=== PATIENT | female | born 1945 | race Caucasian/White ===

== ENCOUNTER 2020-01-23 16:23 | Inpatient (IN) | payer OTHER ==
[~2020-01-23] VITALS: Ht 165.1 cm; Wt 57.2 kg
[~2020-01-23 16:23] MED LIST: ACCUNEB SO1.25 MG/1 INH; ATIVAN0.5 MG PO; CEFDINIR300 MG PO; COZAAR 50 MG TA50 M1 PO; INDAPAMIDE2.5 MG PO; ZANAFLEX4 MG PO
[2020-01-23 16:36] VITALS: BP 144/71
[2020-01-23 17:08] LABS: BASOPHILS 0.3 % (0.0-2.0); EOSINOPHILS 0.2 % (0.0-3.0); HEMATOCRIT 41.7 % (37.0-47.0); HEMOGLOBIN 13.8 gm/dL (12.0-15.0); LYMPHOCYTES 1.6 % (24.0-44.0); MCH 29.2 pg (26.0-34.0); MCHC 33.2 g/dL (28.0-37.0); MCV 88.1 fL (80.0-100.0); MONOCYTES 3.2 % (1.0-8.0); PLATELET COUNT 332 thou/uL (150-400); POLYS 94.7 % (36.0-66.0); RBC 4.73 mil/uL (4.20-5.00); RDW 14.1 % (10.5-14.5)
[2020-01-23 17:16] LABS: BE(vivo) 0 mmol/L (-2 to +3); HCO3 22.2 mmol/L (22.0-26.0); PCO2 29.7 mmHg (35.0-45.0); pH 7.492 (7.360-7.450); sO2 91.6 % (92.0-98.0)
[2020-01-23 17:17] LABS: PO2 55.6 mmHg (80.0-100.0)
[2020-01-23 17:19] LABS: ANION GAP 11 mmol/L (7-16); BUN 9 mg/dL (7-18); CALCIUM 8.3 mg/dL (8.5-10.1); CHLORIDE 93 mmol/L (98-107); CO2 23 mmol/L (21-32); CREATININE 0.7 mg/dL (0.6-1.0); GLUCOSE 120 mg/dL (74-106); POTASSIUM 3.6 mmol/L (3.5-5.1); SODIUM 127 mmol/L (136-145)
[2020-01-23 17:31] LABS: ALBUMIN 2.6 g/dL (3.4-5.0); SGOT 17 U/L (15-37); SGPT 20 U/L (30-65); TOTAL BILIRUBIN 0.7 mg/dL (0.2-1.0); TOTAL PROTEIN 7.3 g/dL (6.4-8.2); TROPONIN-I <0.06 ng/mL (<0.06)
[2020-01-23] MEDS ORDERED: HALOBETASOL PRO15 GM TOP (19:38)
[2020-01-23] MEDS ORDERED: LATANOPROST 0.2.5 ML OPHTHALMIC (19:39)
[2020-01-23] MEDS ORDERED: PROAIR HFA8.5 GM INH (19:39)
[2020-01-23] MEDS ORDERED: APAP W/CODEINE1 TA2 PO (19:39)
[2020-01-23] MEDS ORDERED: SINGULAIR 10 MG10 M1 PO (19:40)
[2020-01-23] MEDS ORDERED: DILT-XR180 MG PO (19:40)
[2020-01-23 20:43] VITALS: BP 134/52
[2020-01-23 20:55] VITALS: BP 125/59
[2020-01-23 22:32] VITALS: BP 152/80
[2020-01-24 03:57] VITALS: BP 135/55
--- NOTE | 2020-01-24 07:24 | NUR ---
PT ARRIVED ON UNIT FROM ER AT 0400. COMES FROM HOME--ADMITTED WITH SOA--COUGH--SWABBED FOR R/O. AMBULATES TO BATHROOM WITHASSIST X1. TYLENOL PROVIDING PAIN RELIEF. RESTING COMFORTABLY. NO NEEDS VOICED. CALL LIGHT WITHIN REACH. FREQUENT OBSERVATION.
[2020-01-24 08:03] VITALS: BP 100/53
--- NOTE | 2020-01-24 08:46 | EKG ---
[facility] [address] [place] [address] ELECTROCARDIOGRAM REPORT Name: OLU SIDDIQUI Room #: 355- ADM IN M.R.#: [id number] Admission: 01/23/20 Attend Phys: Arun Mays MD Discharge: Date of : 49 Report #: [id number] THIS REPORT FOR: cc: Jonel Dawson MD, Thomas P. MD Lundgren,Rito Eden MD [facility] ~ THIS REPORT FOR: //name// [facility] ED Test Date: 2020-01-23 Test Time: 16:45:53 Pat Name: OLU SIDDIQUI Department: Room: [facility] Gender: F Director [employer]itation Bureau: Elisabeth : 1945 Requested By: Shilpa Mayo Order Number: [id number] MD: Rito Mireles Measurements Intervals [place] Rate: 122 P: 78 SC: 137 QRS: 42 QRSD: 92 T: 77 QT: 305 QTc: 435 Interpretive Statements Sinus tachycardia Occasional supraventricular complexes Compared to ECG 12/12/2016 01:24:18 Atrial premature complex(es) now present Sinus tachycardia is now present Electronically Signed On 01-24-2020 8:46:20 CDT by Rito Mireles [email or web address] <ELECTRONICALLY SIGNED> By: Rito Mireles MD, [facility] 01/24/20 0846 [id number] Rito Mireles MD, [facility] /EPI
--- NOTE | 2020-01-24 11:14 | NUR ---
PT WAS SEEN TODAY FOR THE FIRST TIME, PT'S BLOOD PRESSURE WAS LOW THIS AM VIA MACHINE, SO RN RETOOK THE PT'S HR AND BP MANUALLY; WHICH WAS 115/75 AND 92HR. NO CONCERNS FROM THE PT, SHE WAS CURIOUS ABOUT WHEN THE COVID TEST WILL POPULATE, SPOKE WITH CALEBO THIS AM, PER STAFF, CURRENT PCR TEST IS DOWN AND IS BEING PROCESSED AT [facility]; WHICH TAKES ABOUT 24HRS. COMMUNICATED THIS INFORMATION TO THE PT. PT;S DAUGHTERS CALLED THIS AM HOPING TO RETREIVE INFORMATION, PER PT IT IS OKAY TO RELEASE INFORMATION, PT'S FAMILY STATED UNDERSTANDING OF CURRENT CARE REGIMEN AND VERBALLY STATED GRATITUDE FOR CURRENT CARE AND FUTURE CARE PLANS. WILL CONTINUE TO MONITOR FOR PROPER OXYGENATION AND UPDATE NEEDED
[2020-01-24 12:16] VITALS: BP 135/75
[2020-01-24 15:47] VITALS: BP 103/62
[2020-01-24 22:05] VITALS: BP 118/64
--- NOTE | 2020-01-25 00:10 | NUR ---
PT AOX4. PT REPORTS PAIN IN RIGHT RIBS, WORSENED BY COUGHING. PT RECEIVING PRN PO APAP Q6HR AND HAS PRN PO NORCO Q6HR AVAILABLE. PT AMBULATING TO BATHROOM WITH X1 ASSIST, NOTED TO HAVE UNSTEADY GAIT AT TIMES, WALKER TO BE PROVIDED.PT TOLERATING PO INTAKE OF FLUIDS WITHOUT ISSUE. PT CONTINUES WITH 3L O2 VIA NC, NOTED TO HAVE SOB WITH EXERTION OR ON ROOM AIR. PT REPORTS ANXIETY, PT RECEIVING PRN PO ATIVAN Q8HR. FREQUENT REPOSITIONING ENCOURAGED. PT NOTED TO SHIFT INDEPENDENTLY WHILE IN BED. PT ENCOURAGED TO NOTIFY STAFF FOR ALL NEEDS. CALL LIGHT WITHIN REACH, BED ALARM ON, BED IN LOWEST POSITION, WILL CONTINUE TO MONITOR.
[2020-01-25 03:18] VITALS: BP 117/59
[2020-01-25 08:18] VITALS: BP 112/57
[2020-01-25 11:54] VITALS: BP 134/61
--- NOTE | 2020-01-25 15:45 | NUR ---
INITIAL ASSESSMENT: SW reviewed chart and spoke with nursing and attending physician. Pt was admitted from home due to pneumonia/acute respiratory failure. Pt placed in Enhanced Isolation to r/o COVID-19. Pt's first test was negative. Awaiting repeat test results. SW received call from pt's dtr, Xiao Rojas ([phone]). Per Xiao she has provided her contact info to the nursing staff, but it is not listed on pt's chart. Xiao would like an update. SW explained that consent from the pt will need to be obtained, to add Xiao to her authorized contact list. Xaio verbalized understanding. SW spoke with pt via phone. Introduced role of SW. Pt is alert/orientated. Pt reports she lives at home with her . Prior to admission, she was independent with ADLs. Pt does have a cane to assist as needed with ambulation. Pt states there are stairs in her house that she is able to navigate. Pt's PCP is Dr. Jonel Dawson. Pt has used home health in the past, but unsure of agency. No hx of post-acute placement. Pt's goal is to return home when medically stable. Pt authorized Xiao to be on her contact list. Info placed in Voalte. SW updated nursing, who placed call to Xiao to provide update. SW is following to assist as needed with discharge planning.
[2020-01-25 16:06] VITALS: BP 133/64
[2020-01-25 16:18] LABS: CALCIUM 8.6 mg/dL (8.5-10.1); CREATININE 0.7 mg/dL (0.6-1.0); POTASSIUM 3.8 mmol/L (3.5-5.1)
--- NOTE | 2020-01-25 17:39 | NUR ---
PT UP TO BATHROOM SEVERAL TIME. PT TOLERATING PO WELL AND REMAINS ON 3LNC. SECOND COVID TEST IS NEGATIVE. WILL CONTINUE TO ASSESS.
[2020-01-25 19:07] VITALS: BP 119/63
--- NOTE | 2020-01-25 20:09 | NUR ---
ENHANCED PRECAUTIONS MAY BE DISCONTINUED PER DR BRIONNA RENO
[2020-01-26 03:02] VITALS: BP 151/64
--- NOTE | 2020-01-26 05:50 | NUR ---
ASSUMED CARE FROM DAY SHIFT PT ALERT AND ORIENTED X 4 UP TO BSC FREQ . PO MEDICATION TAKEN WITH SNACK , PT THEN WENT TO SLEEP AND WOKE UP CONFUSED PACKING UP BELONGING TO LEAVE HOSPITAL, PT REORIENTED TO PLACE AND SITUATION.PT CALLED DAUGHTER, THEN PT APPEARS TO BECOME CALM AND COOPERATIVE . PT THEN CLIMB IN BED AND FELL ASLEEP. PT TO TRANFER TO CCU.
[2020-01-26 06:56] VITALS: BP 152/79
--- NOTE | 2020-01-26 11:04 | 2DMMODE ---
[facility] [place] [address] 2 D/M-MODE ECHOCARDIOGRAM Name: OLU SIDDIQUI Room #: 204-P ADM IN M.R.#: [id number] Admission: 01/23/20 Attend Phys: Arun Mays MD Discharge: Date of : 49 Report #: [id number] THIS REPORT FOR: cc: Jonel Dawson MD, Thomas P. MD Lammoglia, Francisco J. MD ~ APPROVED REPORT Study performed: 01/26/2020 10:23:25 EXAM: Comprehensive 2D, Doppler, and color-flow Echocardiogram Patient Location: Bedside Room #: 204 Status: routine BSA: 1.62 HR: 90 bpm BP: 152/79 mmHg Rhythm: NSR Other Information Study Quality: Adequate Indications Short of breath, cough, CHF. Hx: HTN 2D Dimensions RVDd: 34.14 mm IVSd: 9.89 (7-11mm) LVOT Diam: 19.77 (18-24mm) LVDd: 42.38 mm PWd: 9.15 (7-11mm) LVDs: 32.72 (25-40mm) Aortic Root: 33.28 mm Volumes Left Atrial Volume (Systole) Single Plane 4CH: 23.09 mL Single Plane 2CH: 39.31 mL LA ESV Index: 22.00 mL/m2 Aortic Valve AoV Peak Micheal.: 1.49 m/s AO Peak Gr.: 8.84 mmHg LVOT Max P.94 mmHg LVOT Max V: 1.22 m/s STEW Vmax: 2.51 cm2 [facility] [address] [place] [address] 2 D/M-MODE ECHOCARDIOGRAM Name: OLU SIDDIQUI Room #: 204-P [facility] IN .R.#: [id number] Admission: 01/23/20 Attend Phys: Vu Ferrer Discharge: Date of : 49 Report #: [id number] Mitral Valve E/A Ratio: 1.2 MV Decel. Time: 174.86 ms MV E Max Micheal.: 1.33 m/s MV A Micheal.: 1.11 m/s MV PHT: 50.71 ms IVRT: 48.44 ms Pulmonary Valve PV Peak Micheal.: 1.08 m/s PV Peak Gr.: 4.64 mmHg Pulmonary Vein P Vein S: 0.50 m/s P Vein A: 0.41 m/s P Vein D: 0.66 m/s P Vein A Dur.: 79.6 msec P Vein S/D Ratio: 0.76 Tricuspid Valve TR Peak Micheal.: 3.03 m/s RAP Estimate: 10.00 mmHg TR Peak Gr.: 37.00 mmHg PA Pressure: 47.00 mmHg Left Ventricle The left ventricle is normal size. There is normal LV segmental wall motion. There is normal left ventricular wall thickness. Left ventricular systolic function is normal. LVEF is 55-60%. Moderate diastolic dysfunction is present (pseudonormal filling). Right Ventricle The right ventricle is normal size. The right ventricular systolic function is normal. Atria The left atrium size is normal. The right atrium size is normal. Aortic Valve The aortic valve is normal in structure. No aortic regurgitation is present. There is no aortic valvular stenosis. Mitral Valve The mitral valve is normal in structure. Moderate mitral regurgitation. Tricuspid Valve The tricuspid valve is normal in structure. Trace tricuspid [facility] [address] [address] 2 D/M-MODE ECHOCARDIOGRAM Name: CHENOLU Room #: 204-P [facility] IN .R.#: [id number] Admission: 01/23/20 Attend Phys: Vu Ferrer Discharge: Date of : 49 Report #: [id number] regurgitation. Estimated PAP is 45-50mmHg. Pulmonic Valve Pulmonic valve is not well visualized. Great Vessels The aortic root is normal in size. Ascending aorta is not well visualized. IVC is dilated and collapses partially with inspiration. Pericardium There is no pericardial effusion. <Conclusion> The left ventricle is normal size. LVEF is 55-60%. The aortic valve is normal in structure. The mitral valve is normal in structure. Moderate mitral regurgitation. The tricuspid valve is normal in structure. Trace tricuspid regurgitation. Estimated PAP is 45-50mmHg. Pulmonic valve is not well visualized. There is no pericardial effusion. <ELECTRONICALLY SIGNED> By: Chema Tao MD 01/26/20 1103 1103 1103 Chema Tao MD /INF
[2020-01-26 11:50] VITALS: BP 131/59
[2020-01-26 15:23] VITALS: BP 116/58
--- NOTE | 2020-01-26 18:39 | NUR ---
ASSESSMENT CHARTED. MEDS PER AUG. UP TO THE BATHROM WITH STBY ASSIST. PT WITH O2 INSIUT AT TIME OF AMBULATION. ANSHUL DIET AND FLUIDS WITH NO CO'S OF NAUSEA. PT WITH CO'S OF RIB PAIN FROM COUGHING GIVEN HYDROCODONE WITH GOOD RELIEF. PATIENT GIVEN LASIX WITH GOOD OUTPUT. ECHO COMPLETED THIS AM. DAUGHTER AT THE BEDSIDE FOR THE DAY. MEDS PER AUG. NO CO'S AT THE PRESENT TIME.
[2020-01-26 19:40] VITALS: BP 137/78
[2020-01-27 03:50] VITALS: BP 132/72
--- NOTE | 2020-01-27 05:02 | NUR ---
ASSESSMENTS CHARTED, MEDS CHARTED GIVEN. PATIENT RESTING IN ROOM DURIMG SHIFT. PATIENT RECEIVED TWO IV ANTIBIOTICS THEN THE IV BEGAN TO HURT THE PATIENT. A NEW IV WAS STARTED IN THE LEFT FOREARM. A SMALL SKIN TEAR HAPPENED THE OLD TEGADERM WAS REMOVED. PATIENT IS ALSO ON LASIX THERAPY. C/O PAIN IN LEFT RIB AREA FROM COUGHING. HYDROCODONE GIVEN FOR PAIN. PATIENT USING BSC. FALL PRECAUTIONS IN PLACE DURING SHIFT.
[2020-01-27 06:14] LABS: HEMATOCRIT 36.4 % (37.0-47.0); HEMOGLOBIN 12.1 gm/dL (12.0-15.0); MCH 29.2 pg (26.0-34.0); MCHC 33.2 g/dL (28.0-37.0); MCV 87.9 fL (80.0-100.0); PLATELET COUNT 463 thou/uL (150-400); RBC 4.14 mil/uL (4.20-5.00); WBC 8.5 thou/uL (4.0-11.0)
[2020-01-27 08:14] VITALS: BP 135/65
[2020-01-27 08:52] LABS: METAMYELOCYTES 1 %; MYELOCYTES 1 %
[2020-01-27 08:53] LABS: ABSOLUTE NEUTROPHILS 7.9 thou/uL (1.4-8.2); ANISOCYTOSIS 1+
[2020-01-27 11:44] VITALS: BP 126/69
[2020-01-27 15:13] VITALS: BP 144/73
--- NOTE | 2020-01-27 16:10 | NUR ---
ASSESSMENT CHARTED. PT ALERT AND ORIENTED. VSS. REPORT HAVING RIB PAIN WITH DEEP BREATHING. RT TREATMENT PROVIDED ORDERED. FAMILY UPDATED ON PT'S PROGRESS. WILL CONTINUE TO MONITOR.
[2020-01-27 20:01] VITALS: BP 149/61
[2020-01-28 03:45] VITALS: BP 121/74
[2020-01-28 07:40] VITALS: BP 140/69
--- NOTE | 2020-01-28 08:08 | NUR ---
[facility] 1900. PT/VITALS STABLE. INTERMITTENT NON CARDIAC CHEST PAIN DUE TO EXCESSIVE COUGHING. NO DISTRESS NOTED. SR ON MONITOR . PROGRESSING WELL WITH POC. O2 DECREASED FROM 4-2LNC THIS AM BY RT AND PT SEEMS TO BE TOLERATING WELL. PROGRESSING WELL WITH POC. PLAN IS POSSIBLE DISCHARGE WITHIN THE NEXT FEW DAYS. WILL CONTINUE TO MONITOR AND FOLLOW WITH POC
[2020-01-28 11:45] VITALS: BP 138/61
--- NOTE | 2020-01-28 15:53 | NUR ---
ASSESSMENT CHARTED. PT ALERT AND ORIENTED. VSS. PRN PAIN MED GIVEN WITH PARTIAL RELIEF. RT TREATMENT PROVIDED ORDERED. DAUGHTER UDATED ON PT'S PROGRESS. PT PROGRESSING SLOWLY TOWARDS DISCHARGE GOAL.
[2020-01-28 16:05] VITALS: BP 150/66
--- NOTE | 2020-01-28 17:42 | NUR ---
If patient is to discharge over weekend and HH ordered. Call [facility] to alert of dc. alert new referral. Fax orders and H/P ph [phone] fax [phone]
[2020-01-28 19:30] VITALS: BP 155/66
[2020-01-29 03:45] VITALS: BP 153/85
--- NOTE | 2020-01-29 06:42 | NUR ---
PATIENT UP TO TOILET WITH O2 WITHOUT ASSIST; PATIENT HAD BURST OF SVT AT NOC; PATIENT IS ON 2L N/C WITH WHEEZING IN UPPER AND LOWER AIRWAYS; EARLIER IN THE NOC WHEEZING HEARD LLL AND FINE CRACKLES IN RLL. PATIENT C/O OF PAIN IN THE LLABDO IN EARLY AM, PAIN MEDS GIVEN AND PAIN RESOLVED. PATIENT IS PROGRESSING WELL TOWARDS GOALS AND DISCHARGE.
[2020-01-29 08:14] VITALS: BP 173/88
[2020-01-29 09:26] LABS: MCH 29.4 pg (26.0-34.0); MCHC 33.2 g/dL (28.0-37.0); MCV 88.5 fL (80.0-100.0); RBC 4.86 mil/uL (4.20-5.00); RDW 15.1 % (10.5-14.5); WBC 16.2 thou/uL (4.0-11.0)
[2020-01-29 09:28] LABS: HEMOGLOBIN 14.3 gm/dL (12.0-15.0)
[2020-01-29 09:36] LABS: CALCIUM 8.5 mg/dL (8.5-10.1); CREATININE 0.8 mg/dL (0.6-1.0); POTASSIUM 4.5 mmol/L (3.5-5.1)
[2020-01-29 12:33] VITALS: BP 138/62
[2020-01-29 15:15] VITALS: BP 155/68
--- NOTE | 2020-01-29 17:23 | NUR ---
ASSESSMENT CHARTED. PT ALERT AND ORIENTED VSS. SOB NOTED WITH ACTIVITY. RT TREATMENT PROVIDED ORDERED. DAUGHTER AT THE BEDSIDE. PROGRESSING SLOWLY TOWARDS DISCHARGE GOAL. WILL CONTINUE TO MONITOR.
[2020-01-29 19:20] VITALS: BP 172/84
[2020-01-29 20:49] VITALS: BP 181/94
[2020-01-30 00:35] VITALS: BP 170/90
[2020-01-30 04:35] VITALS: BP 158/83
--- NOTE | 2020-01-30 06:02 | NUR ---
PATIENT ADMITTED 01/23/20; PATIENT IS VERY ANXIOUS TO DISCHARGE TO HOME. DURING NOC SHIFT PATIENT'S SYSTOLIC WAS IN THE 170-180s/80-90s BUT AT 0400 VS WERE 150s/80s. WHEEZING IN UPPER AIRWAYS BUT IMPROVED BY MORNING TO CTA LOWER AIRWAYS WHEEZING AND FINE CRACKLES CAN BE HEARD. PATIENT AMBULATES TO COMMODE EASILY. PATIENT IS PROGRESSING TOWARD GOALS SLOWLY. CONTINUE TO MONITOR BREATHING AND ASSESS FOR DISCHARGE.
[2020-01-30 07:47] VITALS: BP 160/64
[2020-01-30] MEDS ORDERED: LIDOPATCH1 EACH TRANSDERM (10:04)
[2020-01-30] MEDS ORDERED: SPIRIVA18 MCG INH (10:04)
[2020-01-30] MEDS ORDERED: AZITHROMYCIN 2250 MG PO (10:04)
[2020-01-30] MEDS ORDERED: IPRAT-ALBUT 0.5-3 ML INH (10:04)
[2020-01-30] MEDS ORDERED: PREDNISONE 20 M20 MG PO (10:04)
[2020-01-30] MEDS ORDERED: MUCINEX600 MG PO (10:04)
[2020-01-30] MEDS ORDERED: CEFDINIR300 MG PO (10:04)
[2020-01-30] MEDS ORDERED: PEPCID20 MG PO (10:04)
[2020-01-30] MEDS ORDERED: METOPROLOL TART25 MG PO (11:00)
[2020-01-30 11:26] VITALS: BP 152/72
[2020-01-30 12:31] VITALS: BP 152/72
--- NOTE | 2020-01-30 15:26 | NUR ---
ASSESSMENT CHARTED. PT ALERT AND ORIENTED. VSS. REPORT FEELING AND BREATHING BETTER TODAY. SEEN BY DR. CROOK. ORDERS GIVEN TO DISCHARGE PT TO H/H. PT LEFT THE FACILITY ACCOMPANIED BY THE DAUGHTER. ORDERS FAXED TO [employer] AND PROVIDER [facility]
[2020-01-31] MEDS ORDERED: INCRUSE ELLI62.5 MCG INH (15:20)
== END 2020-01-30 15:29 | disposition home health service (06) | DRG 193 ==
LOC: ER 16:23 → 3W 20:10 → EROBS 20:10 → 2N 20:10 → 3W 20:58 → 2N 01-26 06:55
PROVIDERS: Physician Assistant; Specialist; ADMIT Hospitalist; ATTEND Hospitalist
DX: J18.9 Pneumonia, unspecified organism (principal); J96.01 Acute respiratory failure with hypoxia; R65.11 Systemic inflammatory response syndrome (SIRS) of non-infectious origin with acute organ dysfunction; E87.1 Hypo-osmolality and hyponatremia; I27.21 Secondary pulmonary arterial hypertension; J47.9 Bronchiectasis, uncomplicated; L40.9 Psoriasis, unspecified; J84.10 Pulmonary fibrosis, unspecified; J43.9 Emphysema, unspecified; Z20.828 Contact with and (suspected) exposure to other viral communicable diseases; I10 Essential (primary) hypertension; F41.9 Anxiety disorder, unspecified; Z79.899 Other long term (current) drug therapy; Z79.51 Long term (current) use of inhaled steroids; Z87.891 Personal history of nicotine dependence; Z90.710 Acquired absence of both cervix and uterus; Z82.49 Family history of ischemic heart disease and other diseases of the circulatory system
CPT/HCPCS: 10081; 10879

== ENCOUNTER → 2020-03-09 | Outpatient (CLI) | payer OTHER ==
[~2020-03-09] MED LIST changes: +APAP W/CODEINE1 TA2 PO; +AZITHROMYCIN 2250 MG PO; +DILT-XR180 MG PO; +HALOBETASOL PRO15 GM TOP; +INCRUSE ELLI62.5 MCG INH; +IPRAT-ALBUT 0.5-3 ML INH; +LATANOPROST 0.2.5 ML OPHTHALMIC; +LIDOPATCH1 EACH TRANSDERM; +METOPROLOL TART25 MG PO; +MUCINEX600 MG PO; +PEPCID20 MG PO; +PREDNISONE 20 M20 MG PO; +PROAIR HFA8.5 GM INH; +SINGULAIR 10 MG10 M1 PO; +SPIRIVA18 MCG INH
== END ==
LOC: RAD 13:21
PROVIDERS: ATTEND Internal Medicine Pulmonary Disease
DX: J84.10 Pulmonary fibrosis, unspecified (principal); J98.4 Other disorders of lung

== ENCOUNTER 2021-04-02 16:07 | Inpatient (IN) | payer OTHER ==
[~2021-04-02] VITALS: Ht 165.1 cm; Wt 64.0 kg
[2021-04-02 16:07] VITALS: BP 80/39
[2021-04-02 16:59] LABS: ABSOLUTE NEUTROPHILS 13.2 thou/uL (1.4-8.2); BASOPHILS 0.2 % (0.0-2.0); HEMATOCRIT 47.6 % (37.0-47.0); HEMOGLOBIN 15.2 gm/dL (12.0-15.0); LYMPHOCYTES 5.7 % (24.0-44.0); MCH 27.9 pg (26.0-34.0); MCV 87.2 fL (80.0-100.0); MONOCYTES 3.1 % (1.0-8.0); PLATELET COUNT 241 thou/uL (150-400); RBC 5.45 mil/uL (4.20-5.00); RDW 16.2 % (10.5-14.5); WBC 14.5 thou/uL (4.0-11.0)
[2021-04-02 17:18] LABS: CALCIUM 8.8 mg/dL (8.5-10.1); CREATININE 1.9 mg/dL (0.6-1.0)
[2021-04-02 17:24] LABS: ALBUMIN 3.3 g/dL (3.4-5.0); TOTAL BILIRUBIN 0.3 mg/dL (0.2-1.0); TOTAL PROTEIN 7.7 g/dL (6.4-8.2)
[2021-04-02 17:27] LABS: BE(vivo) -7.8 mmol/L (-2 to +3); HCO3 16.4 mmol/L (22.0-26.0); PCO2 30.1 mmHg (35.0-45.0); PO2 56.8 mmHg (80.0-100.0); pH 7.353 (7.360-7.450); sO2 88.8 % (92.0-98.0)
--- NOTE | 2021-04-02 18:33 | NUR ---
VAT CONSULTED FOR CVAD. RIGHT IJ IS NONCOMPRESSABLE BUT LEFT IJ WAS WIDELY PATENT WITH USG. 6FR 25CM TL POWER JACC INSERTED X 1 STICK TO 6CM EXTERNAL. WITH BRISK BR. PT TOLERATED WELL. STAT CXR DONE,CONFIRMED PLACEMENT AT [facility]. RELEASED FOR IMMEDIATE USE PER PROTOCOL TO [facility]
[2021-04-02 19:05] LABS: URINE BILIRUBIN NEGATIVE (Negative); URINE BLOOD TRACE (Negative); URINE CLARITY CLEAR; URINE COLOR YELLOW; URINE GLUCOSE-RANDOM* NEGATIVE (Negative); URINE KETONES 1+ (Negative); URINE LEUKOCYTES-REFLEX NEGATIVE (Negative); URINE NITRITE-REFLEX NEGATIVE (Negative); URINE SPECIFIC GRAVITY >= 1.030 (1.005-1.035); URINE UROBILINOGEN 0.2 E.U./dl (0.2-1.0)
[2021-04-02 19:06] LABS: URINE PROTEIN (DIPSTICK) TRACE (Negative)
[2021-04-02 19:17] LABS: APTT 34.2 Seconds (24.5-32.8); INR 0.97; PROTIME 10.6 Seconds (10.5-12.1)
[2021-04-02 19:26] LABS: D-DIMER 0.31 ug/mLFEU (0.19-0.50)
--- NOTE | 2021-04-02 19:44 | NUR ---
PER DAUGHTER/MARISA STEINER, PATIENT DOES NOT WANT REMDESIVIR MEDICATION BUT DOES WAS IVERMECTIN. ASKED PATIENT WHAT SHE WOULD WANT, PATIENT TOLD ME SHE WANTS TO REFUSE MEDICATION UNTIL SHE TALKS WITH HER DAUGHTER.
[2021-04-02 21:19] VITALS: BP 115/58
[2021-04-02 22:40] VITALS: BP 127/62
--- NOTE | 2021-04-03 01:56 | NUR ---
MICROFICHE DUPLICATOR REPORTED PT WITH INCREASED CONFUSION DURING TRANSFER TO AND FROM BEDSIDE COMMODE. UPON ASSESSMENT, O2 SAT NOTED TO BE 85% ON 3L. OXYGEN WAS TITRATED UP TO 5L, PT PROVIDED EDUCATION AND ENCOURAGEMENT ON BREATHING TECHNIQUES, AND O2 SAT IMPROVED TO 93/94%. PT PLACED ON CONTINUOUS O2 MONITORING. TM
[2021-04-03 03:12] VITALS: BP 101/52
[2021-04-03 05:43] LABS: BUN 24 mg/dL (7-18); CALCIUM 7.2 mg/dL (8.5-10.1); CHLORIDE 107 mmol/L (98-107); CO2 21 mmol/L (21-32); GLUCOSE 125 mg/dL (74-106); POTASSIUM 3.6 mmol/L (3.5-5.1)
[2021-04-03 05:46] LABS: HEMATOCRIT 38.4 % (37.0-47.0); MCH 28.6 pg (26.0-34.0); MCV 86.6 fL (80.0-100.0); RBC 4.44 mil/uL (4.20-5.00); WBC 10.5 thou/uL (4.0-11.0)
[2021-04-03 05:49] LABS: CALCIUM 7.2 mg/dL (8.5-10.1); POTASSIUM 3.8 mmol/L (3.5-5.1)
--- NOTE | 2021-04-03 05:51 | NUR ---
PT ADMITTED TO 3W FROM ER, ARRIVED VIA CART, ADMITTED TO ROOM 356. ADMISSION ASSESSMENTS COMPLETED. PT ARRIVED TO UNIT ON 3L O2 PER NASAL CANULA, TITRATED UP TO 5L. AROUND APPROXIMATELY 0345, PT'S O2 DROPPED TO 82%. PT NOTED TO BE SLEEPING AND ON ROOM AIR, HAD REMOVED NASAL CANULA. WITHIN 5 MINUTES OF REPLACING NASAL CANULA, O2 BULMARO TO 93%. ASSESSMENTS AND OBSERVATIONS ONGOING.
[2021-04-03 05:52] LABS: ALBUMIN 2.1 g/dL (3.4-5.0); DIRECT BILIRUBIN < 0.1 mg/dL (<0.1-0.2); PHOSPHORUS 2.7 mg/dL (2.5-4.9); SGOT 35 U/L (15-37); SGPT 51 U/L (30-65); TOTAL BILIRUBIN 0.2 mg/dL (0.2-1.0); TOTAL PROTEIN 5.5 g/dL (6.4-8.2)
[2021-04-03 05:54] LABS: HEMOGLOBIN 12.7 gm/dL (12.0-15.0)
[2021-04-03 06:10] LABS: ANION GAP 11 mmol/L (7-16); CREATININE 0.9 mg/dL (0.6-1.0); SODIUM 139 mmol/L (136-145)
[2021-04-03 06:11] LABS: CREATININE 0.8 mg/dL (0.6-1.0)
[2021-04-03 07:33] VITALS: BP 98/53
[2021-04-03 11:27] VITALS: BP 112/56
--- NOTE | 2021-04-03 11:59 | NUR ---
PT DAUGHTER, OBDULIA CADLERON, CALLED UNIT TO GET UPDATE ON HER MOTHER. THIS RN PROVIDED UPDATED VITAL SIGNS, MEDICATIONS PER REQUEST. OBDULIA STATED SHE DOES NOT WANT PT ON REMDESIVIR "DUE TO HER PERSONAL RESEARCH IN THE SIDE EFFECTS IT HAS ON WHAT IT DOES TO ASTHMA PATIENTS" THIS RN PAGED DR SHERIDAN FOR UPDATE.
--- NOTE | 2021-04-03 15:14 | NUR ---
INITIAL ASSESSMENT: SW reviewed chart and spoke with nursing and attending physician. Pt was admitted from home due to COVID pneumonia. Pt placed in Enhanced Isolation. Pt has not received a COVID vaccine. Pt is afebrile and requiring 10L of O2. Pt is on IV abx and has been started on Remdesivir. ID consulted. SW placed call to pt's room. No answer. Per chart, pt is alert/orientated. Pt lives at home with family. Pt has used [facility] in the past. Pt's PCP is listed as Dr. Jonel Dawson. Therapy evals to be ordered when pt is able to participate. SW is following to assist as needed with discharge planning.
[2021-04-03 15:54] VITALS: BP 119/53
--- NOTE | 2021-04-03 19:05 | NUR ---
THIS RN SPOKE WITH DR SHERIDAN EARLIER IN SHIFT, DR SHERIDAN STATES THAT HE WILL FURTHER DISCUSS REMDESIVER WITH PT. PT STATES "THAT'S THAT MEDICATION THAT MY DAUGHTER DOES NOT WANT ME TO TAKE. I WANT TO TAKE IT. I THINK I FEEL BETTER THAN I DID THIS MORNING. I WOULD LIKE TO KEEP TAKING IT"
[2021-04-03 19:08] VITALS: BP 112/51
[2021-04-03 23:16] VITALS: BP 107/60
[2021-04-04 04:38] VITALS: BP 114/54
[2021-04-04 05:22] LABS: ANION GAP 13 mmol/L (7-16); BUN 18 mg/dL (7-18); CHLORIDE 108 mmol/L (98-107); CO2 18 mmol/L (21-32); CREATININE 0.7 mg/dL (0.6-1.0); GLUCOSE 86 mg/dL (74-106); POTASSIUM 3.7 mmol/L (3.5-5.1); SODIUM 139 mmol/L (136-145)
[2021-04-04 05:32] LABS: DIRECT BILIRUBIN < 0.1 mg/dL (<0.1-0.2); PHOSPHORUS 1.6 mg/dL (2.5-4.9); SGOT 34 U/L (15-37); SGPT 43 U/L (30-65); TOTAL BILIRUBIN 0.2 mg/dL (0.2-1.0); TOTAL PROTEIN 5.1 g/dL (6.4-8.2)
--- NOTE | 2021-04-04 05:41 | NUR ---
PT IS SLOWLY PROGRESSING TOWARD GOALS. PT'S O2 SATS REMAINED AROUND 90-94% ON 5L PER NC. SHE IS UP TO BSC WITH ASSIST X1-2, AND DOES DESATURATE DURING AND AFTER TRANSFERS. SHE REQUIRED TITRATION UP TO 7L AFTER TRANSFER, THOUGH RESPONDED QUICKLY AND WAS ABLE TO BE TITRATED BACK TO 5L WITHIN MINUTES AND REMAINED AROUND 93%. SHE CONTINUES TO HAVE LOOSE STOOLS, X2 THIS SHIFT. CDIFF SAMPLE RESULTED NEGATIVE.
[2021-04-04 07:57] VITALS: BP 106/56
[2021-04-04 11:46] VITALS: BP 94/55
--- NOTE | 2021-04-04 11:57 | HC ---
[facility] [place] [address] [place] [address] CONSULTATION Name: OLU SIDDIQUI Room #: 356-P ADM IN ..#: [id number] Admission: 04/02/21 Attend Phys: Giovani Munoz MD Discharge: Date of : 49 Report #: [id number] THIS REPORT FOR: cc: Jonel Dawson MD, Thomas P. MD Barry, Joseph W. MD ~ DATE OF SERVICE: 04/03/2021 INFECTIOUS DISEASE CONSULTATION ATTENDING PHYSICIAN: Dr. Munoz. REASON FOR EVALUATION: COVID-19 infection, complicated by pneumonitis and respiratory failure. HISTORY OF PRESENT ILLNESS: Chart reviewed, the patient examined. A 75-year-old with history of hypertension, COPD, has been ill for the last several days. She notes she has had diarrhea, although denies significant abdominal pain. She had experienced some dyspnea as well. Due to lack of resolution of symptoms and signs presented to the Emergency Room. Evaluation was undertaken including coronavirus testing, which was positive. Initial CBC showed a mild elevation of the white cell count. Chest x-ray did confirm bilateral interstitial pneumonitis, did have some renal insufficiency with creatinine of 1.9. Estimated filtration rate of 26, albumin was 3.3. Lactic acid mildly elevated at 2.1. Procalcitonin of 7.42. CT abdomen and pelvis was undertaken. There is question of some ileus. Urinalysis was generally unremarkable. Blood cultures collected at the time of admission are sterile thus far. She was initiated on a combination therapy, initially had opted not to start remdesivir. She has subsequently agreed to it, has been on therapy with Zosyn and vancomycin as well, did receive a dose of azithromycin. ALLERGIES: None known. CURRENT MEDICATIONS: Cholecalciferol, thiamine, vancomycin, montelukast, guaifenesin, dexamethasone, ascorbic acid, pantoprazole, Zosyn, zinc, metoprolol, remdesivir. PAST MEDICAL HISTORY: As described above, hypertension, COPD, psoriasis, history of tobacco abuse, anxiety. SOCIAL HISTORY: Former smoker, occasional ethanol, no illicit drug use. FAMILY HISTORY: Noncontributory. REVIEW OF SYSTEMS: Otherwise, unrevealing. Denies any fevers. Has had some chills. [address] [address] CONSULTATION Name: OLU SIDDIQUI Room #: [address] [place] [address] [place] [facility].#: [id number] Admission: 04/02/21 Attend Phys: Giovani Munoz MD Discharge: Date of : 49 Report #: [id number] PHYSICAL EXAMINATION: GENERAL: She appears chronically ill, undernourished. She is generally lucid, moderate distress. VITAL SIGNS: Temperature 98.5, pulse 90, respirations 22, blood pressure 98/53. SKIN: Warm, dry, no rashes. HEENT: Normocephalic. Extraocular muscles intact. NECK: Supple. Nasal cannula in place. LUNGS: Few scattered coarse breath sounds bilaterally. HEART: Regular, borderline tachycardic. I do not appreciate a murmur. ABDOMEN: Soft, nontender. EXTREMITIES: No cyanosis. GENITOURINARY AND RECTAL: Deferred. LABORATORY DATA: Blood cultures described above, negative thus far. Most recent electrolytes, sodium 140, potassium 3, chloride 108, bicarbonate is 19, anion gap of 13, BUN and creatinine 24 and 0.8, glucose of 121. Liver functions otherwise unremarkable. Albumin 2.1. Total protein 5.5. CBC: White count 10.5, H and H 12.7 and 38.4, platelets of 201. Lactic acid 1.7. Urinalysis negative nitrite, negative leukocyte. CT abdomen and pelvis as noted above, colonic ileus, small amount of free fluid in the pelvis, cholelithiasis, patchy pneumonitis, bilateral lower lobes, small effusions. ASSESSMENT AND PLAN: COVID-19 infection, complicated by pneumonitis and respiratory failure as manifestations presumably of gastrointestinal related complaints with a diarrhea. Clostridium difficile has been sent. I will continue empiric broad-spectrum antibacterial therapy for presumptive secondary bacterial infection also directed therapy against coronavirus with remdesivir, corticosteroids, vitamins. In the event of worsening, consider adding Actemra to the regimen. At this point, she is fairly tenuous. Continue oxygen support as allowed. <ELECTRONICALLY SIGNED> By: Rohit St MD 04/04/21 [id number] MD /nt
--- NOTE | 2021-04-04 15:22 | NUR ---
SW reviewed chart and spoke with nursing and attending physician. Pt remains in Enhanced Isolation due to COVID. Pt is afebrile and on 6L of O2. Pt is on IV abx and Remdesivir. SW placed call to pt's room. No answer. LYNNETTE will continued to follow up with pt to obtain info for assessment and to discuss discharge planning.
[2021-04-04 15:27] VITALS: BP 114/59
[2021-04-04 19:05] VITALS: BP 123/60
--- NOTE | 2021-04-04 19:51 | NUR ---
A/O X4. ON 5L/NC. NO DISDRTESS NOTED. KEEP MONITOR.
[2021-04-05 03:56] VITALS: BP 153/87
--- NOTE | 2021-04-05 05:00 | NUR ---
RT INFORMED NURSE THAT PT'S 02 SATURATION ON 5L NEED TO BE INCREASED TO 10L. ASSESSED PT, NOTICED WHEEZING AND CRACKLES IN BREATHING. CALLED YARD SPOTTER, RECEIVED ORDER TO STOP IV MAINTANENCE FLUIDS AND GIVE X1 2OMG LASIX IV PUSH.
[2021-04-05 05:33] LABS: ANION GAP 10 mmol/L (7-16); BUN 16 mg/dL (7-18); CALCIUM 7.6 mg/dL (8.5-10.1); CHLORIDE 111 mmol/L (98-107); CO2 20 mmol/L (21-32); CREATININE 0.7 mg/dL (0.6-1.0); GLUCOSE 119 mg/dL (74-106); POTASSIUM 3.9 mmol/L (3.5-5.1); SODIUM 141 mmol/L (136-145)
[2021-04-05 05:39] LABS: ALBUMIN 2.2 g/dL (3.4-5.0); DIRECT BILIRUBIN < 0.1 mg/dL (<0.1-0.2); PHOSPHORUS 2.3 mg/dL (2.5-4.9); SGOT 31 U/L (15-37); SGPT 38 U/L (30-65); TOTAL BILIRUBIN 0.3 mg/dL (0.2-1.0); TOTAL PROTEIN 5.6 g/dL (6.4-8.2)
[2021-04-05 07:48] VITALS: BP 144/87
[2021-04-05 11:41] VITALS: BP 128/69
[2021-04-05 15:38] VITALS: BP 157/85
--- NOTE | 2021-04-05 19:46 | NUR ---
RN ASSUMED PT'S CARE AT 0700-1900PM, PT IS A&OX4, PT IS ON O2 5-6L/MIN/NC, PT'S O2SAT STAY AT 92-95%, BUT PT HAS SOB WITH ACTIVITIES, PT IS CONTINUNG IV ABX AND TREAT COVID MEDICATIONS, PT HAS 1 TIME DIARRHEA, , PT GETS UP TO BSC WITH ASSIST, PT'S VS ARE STABLE AT DAY SHIFT.
[2021-04-05 20:10] VITALS: BP 131/70
[2021-04-06 05:00] VITALS: BP 160/89
--- NOTE | 2021-04-06 06:04 | NUR ---
PT ALERT AND ORIENTED X 4. PT ON 5L NC. PT SBA TO BSC. PT HAD MULTIPLE LOOSE STOOLS OVERNIGHT. PT VSS. PT'S DAUGHTER, OBDULIA CALDERON, CALLED TO GET UPDATE ON PT'S CONDITION. NURSE UPDATED DAUGHTER PER REQUEST. PT'S DAUGHTER STATED THAT PT'S SPOUSE VOICED "I WILL CALL CLIENT RELATIONSHIP CONSULTANT IF I DON'T GET A CALL FROM THE DOCTOR TOMORROW". WILL NOTIFY DAY RN. WILL CONTINUE TO MONITOR PT.
[2021-04-06 06:12] LABS: HEMATOCRIT 37.4 % (37.0-47.0); HEMOGLOBIN 12.5 gm/dL (12.0-15.0); MCH 28.2 pg (26.0-34.0); MCHC 33.4 g/dL (28.0-37.0); MCV 84.6 fL (80.0-100.0); RBC 4.42 mil/uL (4.20-5.00); RDW 16.1 % (10.5-14.5); WBC 4.6 thou/uL (4.0-11.0)
[2021-04-06 06:28] LABS: CALCIUM 7.9 mg/dL (8.5-10.1); CREATININE 0.7 mg/dL (0.6-1.0)
[2021-04-06 06:34] LABS: ALBUMIN 1.5 g/dL (3.4-5.0); ANION GAP 10 mmol/L (7-16); BUN 13 mg/dL (7-18); CALCIUM 6.3 mg/dL (8.5-10.1); CHLORIDE 118 mmol/L (98-107); CO2 20 mmol/L (21-32); CREATININE 0.5 mg/dL (0.6-1.0); DIRECT BILIRUBIN < 0.1 mg/dL (<0.1-0.2); GLUCOSE 90 mg/dL (74-106); PHOSPHORUS 1.6 mg/dL (2.5-4.9); SGOT 16 U/L (15-37); SGPT 24 U/L (30-65); SODIUM 148 mmol/L (136-145); TOTAL BILIRUBIN 0.3 mg/dL (0.2-1.0)
[2021-04-06 06:37] LABS: POTASSIUM 2.9 mmol/L (3.5-5.1)
--- NOTE | 2021-04-06 06:44 | NUR ---
CRITICAL CALLED FROM LAB, K+2.9. ALL APPROPRIATE PARTIES NOTIFIED.
[2021-04-06 07:51] VITALS: BP 163/82
[2021-04-06 11:27] VITALS: BP 158/88
[2021-04-06 15:49] VITALS: BP 169/104
--- NOTE | 2021-04-06 15:50 | NUR ---
LYNNETTE reviewed chart and spoke with nursing and attending physician. Pt remains in Enhanced Isolation due to COVID. Pt is afebrile and on 6L of O2. Pt is on IV abx and Remdesivir. No weekend discharge planned. LYNNETTE notified that pt's dtr is wanting to speak with a physician, as she has not received a call back from a physician. LYNNETTE notified attending physician and provided dtr, Xiao's contact info. LYNNETTE is following to assist as needed with discharge planning.
--- NOTE | 2021-04-06 16:02 | NUR ---
PT IS ALERT AND ORIENTED X4. PT IS CURRENTLY ON 5L NC AND HAS WHEEZES IN BILATERAL BASES. SR ON THE MONIOR. PT HAS BEEN UP MULTIPLE TIMES TO THE BEDSIDE COMMODE WITH DIARRHEA. PT CURRENTLY STATING SHE FEELS LIKE SHE CAN NOT BREATHE. RT ON UNIT. PAGED PULMONOLOGY. RECEIVED ORDERS FROM DR. PANDA. PAGED RT FOR BREATHING TREATMENT FOR PT. WILL CONTINUE TO MONITOR.
[2021-04-06 20:30] VITALS: BP 157/76
--- NOTE | 2021-04-07 04:57 | NUR ---
PT ALERT AND ORIENTED X 4. PT HAD LOOSE STOOLS OVERNIGHT. PT'S DAUGHTER, OBDULIA CALDERON, CALLED AND REQUESTED UPDATE ON PT'S CONDITION. NURSE UPDATED DAUGHTER PER REQUEST. PT IS SBA TO BSC . PT IS CURRENTLY ON 5L O2 NC. PT'S VITAL SIGNS ARE STABLE. WILL CONTINUE TO MONITOR.
[2021-04-07 05:00] VITALS: BP 156/64
[2021-04-07 05:36] LABS: HEMATOCRIT 40.1 % (37.0-47.0); HEMOGLOBIN 13.2 gm/dL (12.0-15.0); MCH 27.8 pg (26.0-34.0); MCV 84.2 fL (80.0-100.0); RBC 4.77 mil/uL (4.20-5.00); RDW 15.7 % (10.5-14.5); WBC 6.5 thou/uL (4.0-11.0)
[2021-04-07 05:54] LABS: ALBUMIN 1.4 g/dL (3.4-5.0); ANION GAP 13 mmol/L (7-16); CHLORIDE 118 mmol/L (98-107); CO2 18 mmol/L (21-32); CREATININE 0.4 mg/dL (0.6-1.0); DIRECT BILIRUBIN < 0.1 mg/dL (<0.1-0.2); GLUCOSE 70 mg/dL (74-106); PHOSPHORUS 1.2 mg/dL (2.5-4.9); SGOT 19 U/L (15-37); SGPT 22 U/L (30-65); SODIUM 149 mmol/L (136-145); TOTAL BILIRUBIN 0.3 mg/dL (0.2-1.0); TOTAL PROTEIN 3.4 g/dL (6.4-8.2)
[2021-04-07 06:32] LABS: POTASSIUM 2.5 mmol/L (3.5-5.1)
[2021-04-07 06:33] LABS: CALCIUM 5.6 mg/dL (8.5-10.1)
[2021-04-07 06:40] LABS: BUN 13 mg/dL (7-18)
[2021-04-07 07:38] VITALS: BP 145/86
[2021-04-07 11:12] VITALS: BP 153/77
--- NOTE | 2021-04-07 11:29 | NUR ---
PT IS ALERT AND ORIENTED X4. PT IS ON 7L NC AND O2 SAT IS 90%-92%. SR ON THE MONITOR. PT REFUSED MUCINEX. PT HAS BEEN UP SEVERAL TIMES TO THE BEDSIDE COMMODE WITH DIARRHEA AND HAS PERIODS OF INCONTINENCE IN THE BED. REPLACED CALCIUM AND POTASSIUM. NO COMPLAINTS OF PAIN OR DISCOMFORT AT THIS TIME. WILL CONTINUE TO MONTIOR.
--- NOTE | 2021-04-07 16:35 | NUR ---
REMOVED APEZ PER DR. MACARIO. WILL CONTINUE TO MONITOR PT.
[2021-04-07 19:08] VITALS: BP 156/86
--- NOTE | 2021-04-08 00:41 | NUR ---
PT RESTING IN BED WATCHING TUVALUAN SOAP OPERA. PT CALLS FOR ASSISTANCE TO BSC. PT IS INCONTINENT AND LEAKS URINE DURING TRANSFER AND ALSO IN CHUX IN BED. PT PROVIDED PURWICK. PT DID NOT EAT ANY OF HER PIZZA PROVIDED BY DAUGHTER. O2 PER NC. LUNGS COARSE. IJ INTACT. PT JOKING WITH STAFF, BLUNT AFFECT. PT STATING SHE WANTS TO DC HOME TOMORROW. DAUGHTER CALLED FOR UPDATE.
[2021-04-08 03:59] VITALS: BP 152/96
[2021-04-08 06:16] LABS: HEMATOCRIT 41.4 % (37.0-47.0); HEMOGLOBIN 13.5 gm/dL (12.0-15.0); MCH 27.8 pg (26.0-34.0); MCHC 32.6 g/dL (28.0-37.0); MCV 85.3 fL (80.0-100.0); RBC 4.85 mil/uL (4.20-5.00); RDW 15.7 % (10.5-14.5)
[2021-04-08 06:20] LABS: CREATININE 0.6 mg/dL (0.6-1.0)
[2021-04-08 06:43] LABS: CALCIUM 8.2 mg/dL (8.5-10.1); POTASSIUM 4.2 mmol/L (3.5-5.1)
[2021-04-08 07:39] VITALS: BP 141/77
[2021-04-08 11:37] VITALS: BP 143/89
[2021-04-08 15:35] VITALS: BP 143/82
--- NOTE | 2021-04-08 15:47 | NUR ---
PT IS SLOWLY PROGRESSING TOWARDS CARE. CURRENTLY ON 7L OF OXYGEN. SOB WITH EXERTION. UP TO BSC WITH ASSIST. FALL AND ENHANCED PRECAUTIONS IN PLACE.
[2021-04-08 19:38] VITALS: BP 147/99
--- NOTE | 2021-04-08 19:41 | NUR ---
PT RESTING IN BED, WATCHING TV. O2 PER NC 7L. LUNGS COARSE. PURWICK REPLACED. PT INCONTINENT IN BED. BED ALARM ON. PSORIASIS ON TRUNK AND BLE. PT CHEERFUL TALKATIVE, SOA WITH WITH REPOSITIONING. PT HAS TRAY OF ONION RINGS AT BEDSIDE BUT NOT EATING THEM. PT IS DRINKING HER WATER.
[2021-04-09 05:25] VITALS: BP 142/97
[2021-04-09 07:08] VITALS: BP 151/88
[2021-04-09 11:19] VITALS: BP 130/73
--- NOTE | 2021-04-09 11:48 | NUR ---
Assess due to length of stay. Admit with COVID+ pneumonia. Appetite has been very poor past week, less than 30% of meals. Wt from Jan 2020 125 lb, now 140 lb ?. Has restricted diet order of heart healthy, will liberalize and offer oral supplements. On vitamin pack for covid protocol. Hope to see improvement in oral intake as covid treatment continues and pt begins to feel and breath better. Low nutrition risk
[2021-04-09 12:15] LABS: HEMATOCRIT 42.7 % (37.0-47.0); HEMOGLOBIN 14.4 gm/dL (12.0-15.0); MCH 28.6 pg (26.0-34.0); MCHC 33.7 g/dL (28.0-37.0); PLATELET COUNT 358 thou/uL (150-400); RBC 5.03 mil/uL (4.20-5.00); RDW 15.6 % (10.5-14.5); WBC 8.8 thou/uL (4.0-11.0)
[2021-04-09 12:16] LABS: CALCIUM 8.7 mg/dL (8.5-10.1); CREATININE 0.7 mg/dL (0.6-1.0); POTASSIUM 4.4 mmol/L (3.5-5.1)
[2021-04-09 13:05] LABS: ABSOLUTE NEUTROPHILS 8.1 thou/uL (1.4-8.2); METAMYELOCYTES 2 %
[2021-04-09 13:06] LABS: ANISOCYTOSIS 1+
[2021-04-09 15:18] VITALS: BP 141/70
--- NOTE | 2021-04-09 16:40 | NUR ---
LYNNETTE reviewed chart and spoke with nursing and attending physician. Pt remains in Enhanced Isolation due to COVID. Pt is afebrile and requiring 7-9L of O2. Pt is on IV steroids. LYNNETTE spoke with pt's dtr, Xiao, via phone to provide update and discuss discharge plan. Pt and family's preference is for pt to return home with HH and home O2 if needed. Pt has used [facility] in the past and would like to use them again. Pt's family is open to SNF placement if needed, but would prefer pt to return home. Pt's dtr will be staying with pt after discharge. SW notified [facility] liaison of new referral. LYNNETTE is following to assist as needed with discharge planning.
--- NOTE | 2021-04-09 17:56 | NUR ---
PATIENT DID NOT RECEIVE ENSURE DUE TO KITCHEN BEING OUT OF STOCK
[2021-04-09 18:47] VITALS: BP 127/74
[2021-04-10 04:09] VITALS: BP 127/69
--- NOTE | 2021-04-10 04:58 | NUR ---
PROGRESS PT A/O X4, ON 7 TO 9 LITERS O2 VIA NC. LUNGS COARSE AND DIMINISHED, PT'S BREATHING IS SHALLOW. COUGHING BUT DRY NO SPUTUM PRODUCTION. PT REFUSES GUAFENESIN D/T STATES IT MAKES HER NAUSEOUS. UP AD LENNY, GAIT STEADY ABLE TO MANAGE EQUIPMENT WITHOUT ANY DIFFICULTY. IJ TO LEFT NECK INTACT GOOD BLOOD RETURN IN ALL PORTS AND FLUSHES WITHOUT DIFFICULTY. PT REPORTS NECK PAIN FROM IJ AND TYLENOL GIVEN WITH EFFECT PAIN WENT FROM DOWN TO A 2 AND PT SLEPT AFTER. SKIN C/D/I BUTTOCKS A LITTLE RED FROM FREQUENT STOOLING ZYGUARD APPLIED CONTINUE POC.
[2021-04-10 05:43] LABS: HEMATOCRIT 42.2 % (37.0-47.0); MCH 28.2 pg (26.0-34.0); MCHC 33.2 g/dL (28.0-37.0); MCV 84.8 fL (80.0-100.0); RBC 4.97 mil/uL (4.20-5.00); RDW 15.5 % (10.5-14.5); WBC 10.2 thou/uL (4.0-11.0)
[2021-04-10 05:50] LABS: CALCIUM 8.4 mg/dL (8.5-10.1); CREATININE 0.9 mg/dL (0.6-1.0); POTASSIUM 3.7 mmol/L (3.5-5.1)
[2021-04-10 07:51] VITALS: BP 117/65
[2021-04-10 12:15] VITALS: BP 140/74
[2021-04-10 14:52] VITALS: BP 130/77
[2021-04-10 14:56] VITALS: BP 145/68
--- NOTE | 2021-04-10 15:46 | NUR ---
SW reviewed chart and spoke with nursing and attending physician. Pt remains in Enhanced Isolation due to COVID. Pt is on 7L and IV steroids. Pt is slowly progressing towards goals for discharge. [facility] liaison to follow pt for home health services. LYNNETTE is following to assist as needed with discharge planning.
--- NOTE | 2021-04-10 16:44 | NUR ---
RN ASSUMED PT'S CARE AT 0700AM, PT IS A&OX4, PT IS ON O2 5L/MIN/NC, PT'S VS AND O2SAT ARE STABLE BY THIS TIME, PT IS CONTINUINING TREAT COVID MEDICATIONS, PT DENIES PAIN AND SOB BY THIS TIME.
[2021-04-10 19:23] VITALS: BP 137/76
[2021-04-11 03:56] VITALS: BP 145/80
[2021-04-11 05:26] LABS: HEMATOCRIT 41.9 % (37.0-47.0); HEMOGLOBIN 13.8 gm/dL (12.0-15.0); MCH 28.3 pg (26.0-34.0); MCHC 32.9 g/dL (28.0-37.0); MCV 85.8 fL (80.0-100.0); RBC 4.88 mil/uL (4.20-5.00); RDW 15.8 % (10.5-14.5); WBC 12.7 thou/uL (4.0-11.0)
[2021-04-11 05:36] LABS: CALCIUM 8.7 mg/dL (8.5-10.1); CREATININE 0.6 mg/dL (0.6-1.0)
--- NOTE | 2021-04-11 05:49 | NUR ---
RESTING QUIETLY TONIGHT. DENIES PAIN. SHE TENDS TO REFUSE HER GUAIFENESIN DUE TO ( SHE STATES) THAT IT HURTS HER STOMACH. RECIVED ORDER FOR A PRN BENZOATE 100 MG. FOR COMPLAINTS OF COUGH AN CONGESION.
[2021-04-11 07:42] VITALS: BP 154/85
[2021-04-11 11:38] VITALS: BP 101/65
[2021-04-11 15:14] VITALS: BP 135/82
--- NOTE | 2021-04-11 15:39 | NUR ---
LYNNETTE reviewed chart and spoke with nursing and attending physician. Pt is slowly progressing towards goals for discharge. Pt remains in Enhanced Isolation due to COVID. Pt is afebrile. Pt is requiring 5-8L of O2. Pt is on IV steroids. LYNNETTE placed call to pt's room. No answer. LYNNETTE spoke with pt's dtr, Xiao, via phone. Provided update. Pt's dtr states she is hoping pt will be able to go home by the end of the week. SW discussed current O2 requirements. Pt's dtr states that she will be staying with pt at home when she is discharged and feels comfortable with pt going home on O2. [facility] is following. Pt's dtr states that pt is not eating well and is concerned about her not taking in enough calories. Pt's dtr states it has been difficult not being able to see pt. SW offered to have nursing staff arrange a virtual visit with pt. Pt's dtr states that tomorrow around [id number] would work for family as they will have several family members present. LYNNETTE notified pt's nurse. SW is following to assist as needed with discharge planning.
--- NOTE | 2021-04-11 18:09 | NUR ---
PATIENT IS ALERT AND ORIENTED. PATIENT AT THE BEGINNING OF THIS SHIFT WAS ON 5L OF OXYGEN AND HER OXYGEN SATURATION WAS RUNNING BETWEEN 90- 92%. PATIENTS OXYGEN LEVEL WAS DECREASED TO 4L. PATIENTS OXYGEN SATURATOIN AT THIS TIME IS 90% AND HAS BEEN STEADY AT 90% FOR THE PAST THIRTY MINUTES. PATIENT CONTINUES TO COMPLAIN OF ABDOMINAL DISCOMFORT IN THE EPIGASTRIC AREA WHEN SHE TAKES PILLS OR EATS HER FOOD. PATIENT HAS HAD NO REPORTS OF PAIN. PATIENT SAT UP IN HER CHAIR UNTIL SHE ATE LUNCH. ONCE LUNCH WAS COMPLETED PATIENT WAS ASSISTED BACK INTO HER BED. PATIENT REPORTS THAT SHE IS 'JUST SO TIRED'. PATIENT WILL CONTINUE TO BE MONITORED.
[2021-04-11 20:04] VITALS: BP 136/70
--- NOTE | 2021-04-12 04:05 | NUR ---
pt resting quietly tonight. she has been much more relaxed tonight. continues on 4 liters n/c. 94 -97% during her resting periods at night. calls for assist out of bed, if needed. continues to use the pure wick for urine output. her dtr and her have spoken on the phone and nurse has answered questions when asked during phone calls in the room.
[2021-04-12 04:17] VITALS: BP 143/81
[2021-04-12 07:43] VITALS: BP 139/75
[2021-04-12 09:23] LABS: ABSOLUTE NEUTROPHILS 14.4 thou/uL (1.4-8.2); BASOPHILS 0.1 % (0.0-2.0); EOSINOPHILS 0.2 % (0.0-3.0); HEMATOCRIT 44.8 % (37.0-47.0); HEMOGLOBIN 14.2 gm/dL (12.0-15.0); LYMPHOCYTES 6.9 % (24.0-44.0); MCH 27.8 pg (26.0-34.0); MCHC 31.8 g/dL (28.0-37.0); MCV 87.4 fL (80.0-100.0); MONOCYTES 5.1 % (1.0-8.0); PLATELET COUNT 340 thou/uL (150-400); POLYS 87.7 % (36.0-66.0); RBC 5.12 mil/uL (4.20-5.00); RDW 15.8 % (10.5-14.5); WBC 16.4 thou/uL (4.0-11.0)
[2021-04-12 09:38] LABS: ALBUMIN 2.9 g/dL (3.4-5.0); CALCIUM 8.5 mg/dL (8.5-10.1); CREATININE 0.7 mg/dL (0.6-1.0); POTASSIUM 3.9 mmol/L (3.5-5.1); TOTAL BILIRUBIN 0.6 mg/dL (0.2-1.0); TOTAL PROTEIN 5.8 g/dL (6.4-8.2)
[2021-04-12 11:36] VITALS: BP 112/62
--- NOTE | 2021-04-12 12:05 | NUR ---
VASCULAR ACCESS NURSE ROUNDING. THIS PATIENT IS NO LONGER ON CONTINUOUS IV MEDICATIONS. SUGGEST PERIPHERAL IV PLACEMENT AND REMOVAL OF CENTRAL LINE TO DECREASE THE RISK OF A CENTRAL LINE RELATED BLOOD STREAM INFECTION
--- NOTE | 2021-04-12 14:57 | NUR ---
LYNNETTE reviewed chart and spoke with nursing and attending physician. Pt remains in Enhanced Isolation due to COVID. Pt is afebrile and is on 4L of O2. Pt is on IV steroids. Discharge home with and home O2 is anticipated for tomorrow. LYNNETTE updated [facility] liaisons. LYNNETTE spoke with pt's dtr, Xiao, via phone to discuss discharge plan. Xiao states she was able to have a virtual visit with pt earlier today. Xiao is aware and in agreement with discharge plan. Pt's dtrs will be staying with pt when she returns home. Pt will have 24 hour care provided upon her return home. LYNNETTE is following to assist as needed with discharge planning.
[2021-04-12 15:31] VITALS: BP 123/81
--- NOTE | 2021-04-12 17:07 | NUR ---
PATIENT IS ALERT AND ORIENTED THIS SHIFT. HER RESPIRATIONS HAVE BEEN EVEN AND UNLABORED. LUNG SOUNDS ARE CLEAR BUT DIMINISHED IN ALL FIVE LOBES. PATIENT CONTINUES TO REPORT DISCOMFORT IN THE EPIGASTRIC AREA WITH MEALS. PATIENT WAS OFFERED SUPPLEMENT AND ENCOURAGED TO DRINK SUPPLEMENT WITH ALL MEALS. PATIENT REPORTS THAT SHE THINKS THE SUPPLEMENTS ARE TO SWEET AND DOESNT LIKE THEM. PATIENT SAT UP IN HER RECLINER FROM MID MORNING TO AFTER LUNCH. JAIRON REPORTS THAT SHE IS STILL REALLY TIRED BUT STARTING TO FINALLY FEEL BETTER. PATIENT WILL CONTINUE TO BE MONITORED.
[2021-04-12 19:39] VITALS: BP 122/66
[2021-04-13] VITALS (7 sets, daily range): BP systolic 95–173; BP diastolic 62–86
--- NOTE | 2021-04-13 03:44 | NUR ---
Pt. stated she had headache yesterday that went away after taking tylenol. She slept fair during the night. Assisted to reposition prn for comfort. O2 at 4L/NC with O2 sat in the low 90's at beginning of shift then upper 90's once she started resting. Daughter Xiao called to get an update on pt.Incontinent of bladder and bowel. External cath in place. Z guard applied to buttocks. Cont. on enhanced precaution,afebrile. Making some progress towards care plan goals.
[2021-04-13 09:52] LABS: HEMATOCRIT 45.5 % (37.0-47.0); HEMOGLOBIN 14.6 gm/dL (12.0-15.0); MCH 27.6 pg (26.0-34.0); MCHC 32.2 g/dL (28.0-37.0); MCV 85.8 fL (80.0-100.0); RBC 5.31 mil/uL (4.20-5.00); RDW 15.3 % (10.5-14.5)
[2021-04-13 10:02] LABS: CALCIUM 8.4 mg/dL (8.5-10.1); CREATININE 0.8 mg/dL (0.6-1.0)
--- NOTE | 2021-04-13 16:06 | NUR ---
LYNNETTE reviewed chart and spoke with nursing and attending physician. Pt remains in Enhanced Isolation due to COVID. Pt is afebrile and on 4L of O2. Weekend discharge anticipated. LYNNETTE spoke with pt's dtr, Xiao, at length regarding discharge plan. Xiao states that they want pt to discharge home tomorrow. They do not want her to stay until Friday or past Friday, as they are concerned that pt's condition will decline if she stays longer. LYNNETTE discussed DME options. Pt's dtr has ordered a BSC and states that pt will stay in a recliner. Pt's family does not feel that pt needs a hospital bed at this time. Pt's family has ordered positioning cushions and will be providing 24 hour care. Pt's dtr states that if HH has recommendations, they will order what they recommend. Pt's dtr is aware of pt needing home O2. Pt's dtr is interested in a w/c. LYNNETTE explained that a w/c cannot be delivered over the weekend, but can be ordered through [facility] if pt's insurance will cover. LYNNETTE updated [facility] liaison and notified of weekend discharge. Will need rest/exercise oximetry results and script for O2 faxed to [facility]. [facility]. Final discharge ppwk will need to be faxed to when available. Pt's family will provide transportation home. LYNNETTE updated pt's nurse and attending physician. Contact info for and [facility] placed in pt's discharge summary. LYNNETTE is available to assist as needed with discharge planning. [facility]--
[2021-04-14 03:52] VITALS: BP 118/69
[2021-04-14 06:33] VITALS: BP 135/77
[2021-04-14 07:07] LABS: HEMATOCRIT 41.3 % (37.0-47.0); HEMOGLOBIN 13.6 gm/dL (12.0-15.0); MCV 84.9 fL (80.0-100.0); RBC 4.86 mil/uL (4.20-5.00); RDW 15.4 % (10.5-14.5); WBC 12.6 thou/uL (4.0-11.0)
[2021-04-14 07:21] LABS: CALCIUM 8.5 mg/dL (8.5-10.1); CREATININE 0.7 mg/dL (0.6-1.0); MAGNESIUM 2.3 mg/dL (1.8-2.4)
--- NOTE | 2021-04-14 07:50 | NUR ---
Received pt on 5L/NC at start of shift with O2 sat in the low 90's. O2 titrated down to 4L as her O2 sat has stayed up to 96%. Cont. on enhanced precaution , afebrile. Slept fair during the night. She's hoping to go home today. SCD's on then requested off around MN so she can sleep. Making some progress towards discharge goals.
--- NOTE | 2021-04-14 13:52 | NUR ---
WAS NOTIFIED BY PT'S NURSE THAT THEY REPEATED THE REST/EXERCISE O2 SAT AND PT QUALIFIES FOR HOME O2. FAXED RESULTS TO [facility] WITH INTAKE AND THEY WILL DELIVER A PORT TANK WITHIN THE HOUR ALSO NOTIFIED THE UNIT. DC ORDERS AND SUMMARY STILL NEED TO BE FAXED TO [facility] FAX:[phone] AND CALL [phone] TO NOTIFY OF DC.
[2021-04-14] MEDS ORDERED: LEVOFLOXACIN500 MG PO (14:18)
[2021-04-14] MEDS ORDERED: COZAAR 25 MG TA25 M2 PO (14:19)
[2021-04-14 15:07] VITALS: BP 125/68
[2021-04-14 15:47] VITALS: BP 122/69
--- NOTE | 2021-04-14 17:52 | NUR ---
WENT THOUGH DISCHARGE INSTRUCTIONS WITH DAUGHTER, OBDULIA AND PT S WELL. THEY CARE BOTH AWARE ABOUT PT OUT PT APPOINTMENTS. EDUCATED THEM ON HOW TO USE HOME OXYGEN AND INSTRUCTED TO CALL [facility] FOR HOME O2 SET UP. PICC LINE DISCONTINUE, TELE D/C. ALL PT BELONGINGS WITH PT. PT TAKEN DWON VIA WHEEL CARE
== END 2021-04-14 18:42 | disposition home health service (06) | DRG 871 ==
LOC: ER 16:07 → EROBS 18:02 → 3W 18:02 → ICU 21:33 → 3W 22:00
PROVIDERS: Emergency Medicine; Hospitalist; Internal Medicine; Nurse Practitioner; Nurse Practitioner Family; Specialist; ADMIT Hospitalist; ATTEND Hospitalist
DX: A41.9 Sepsis, unspecified organism (principal); J96.01 Acute respiratory failure with hypoxia; U07.1 COVID-19; J12.82 Pneumonia due to coronavirus disease 2019; R65.21 Severe sepsis with septic shock; E43 Unspecified severe protein-calorie malnutrition; N17.9 Acute kidney failure, unspecified; E87.1 Hypo-osmolality and hyponatremia; J44.0 Chronic obstructive pulmonary disease with (acute) lower respiratory infection; I10 Essential (primary) hypertension; R74.01 Elevation of levels of liver transaminase levels; R53.81 Other malaise; I95.9 Hypotension, unspecified; F41.9 Anxiety disorder, unspecified; Z66 Do not resuscitate; Z87.891 Personal history of nicotine dependence; Z90.710 Acquired absence of both cervix and uterus; Z90.49 Acquired absence of other specified parts of digestive tract; Z82.49 Family history of ischemic heart disease and other diseases of the circulatory system; Z82.79 Family history of other congenital malformations, deformations and chromosomal abnormalities; Z82.3 Family history of stroke; Z98.42 Cataract extraction status, left eye; Z98.41 Cataract extraction status, right eye; Z68.23 Body mass index [BMI] 23.0-23.9, adult
CPT/HCPCS: 10879

== ENCOUNTER → 2021-04-30 | Outpatient (CLI) | payer OTHER ==
[~2021-04-30] MED LIST changes: +COZAAR 25 MG TA25 M2 PO; +LEVOFLOXACIN500 MG PO
== END ==
LOC: RAD 13:36
PROVIDERS: ATTEND Internal Medicine
DX: J18.9 Pneumonia, unspecified organism (principal); R91.8 Other nonspecific abnormal finding of lung field; I51.7 Cardiomegaly; J44.9 Chronic obstructive pulmonary disease, unspecified; M41.84 Other forms of scoliosis, thoracic region

== ENCOUNTER → 2021-05-30 | Outpatient (CLI) | payer OTHER | LOC: RAD 13:15 | PROVIDERS: ATTEND Internal Medicine | DX: J44.9 Chronic obstructive pulmonary disease, unspecified (principal); J98.11 Atelectasis; J18.9 Pneumonia, unspecified organism ==